=== PATIENT | male | born 1960 | race African-American/Black ===

== ENCOUNTER 2017-04-18 21:06 | Emergency (ER) | payer OTHER ==
[2017-04-18] MEDS ORDERED: ONDANSETRON HCL INJ/PF 4 MG/2 ML SDV IV ONE (22:34)
[2017-04-18] MEDS ORDERED: FAMOTIDINE INJ/PF 20 MG/2 ML SDV IV ONE (22:35)
--- NOTE | 2017-04-18 22:37 | ER Document Report ---
ED Medical Screen (RME) - General Chief Complaint: Chest Pain Stated Complaint: CHEST PAIN AND ABDOMINAL PAIN Time Seen by Provider: 04/18/17 22:27 Mode of Arrival: Ambulatory Information source: Patient TRAVEL OUTSIDE OF THE [place] IN LAST 30 DAYS: No - HPI Onset: Other - 3 days Notes: 04/18/17 22:36 Patient arrives with complaints of mid abdominal pain that radiates up into his chest. Pain comes and goes. He does complain of some chest pain as well. He denies any shortness of breath. Been having a lot of diarrhea, and states that anytime he eats or drinks it goes right through him. He denies any vomiting but has had nausea. He denies fevers. States that when the pain comes it is very severe, and then it seems to somewhat resolved. Patient is nontoxic appearing. Mild mid abdominal tenderness on exam, with no obvious palpable mass on limited exam from triage chair. Patient was evaluated in triage and was medically screened. Any pertinent orders based on the patient's complaints were ordered at this time. Patient will require further evaluation and will be taken to a room for further evaluation by another provider. This was explained to the patient and/or family at this time. - Related Data Allergies/Adverse Reactions: No Known Allergies Allergy (Verified 03/17/13 08:06) Past Medical History - Social History Frequency of alcohol use: Social Drug Abuse: None - Past Medical History Cardiac Medical History: Reports: Hx Hypertension - no meds x 2 years Denies: Hx Coronary Artery Disease Pulmonary Medical History: Reports: Hx COPD, Hx Pneumonia Denies: Hx Asthma, Hx Bronchitis Neurological Medical History: Denies: Hx Cerebrovascular Accident, Hx Seizures Renal/ Medical History: Denies: Hx Peritoneal Dialysis Musculoskeltal Medical History: - Immunizations Hx Diphtheria, Pertussis, Tetanus Vaccination: No Physical Exam - Vital signs Vitals: Temp Pulse Resp BP Pulse Ox 98.5 F 49 L 20 154/94 H 98 04/18/17 22:24 04/18/17 22:24 04/18/17 22:24 04/18/17 22:24 04/18/17 22:24 Course - Vital Signs Vital signs: Temp Pulse Resp BP Pulse Ox 98.5 F 49 L 20 154/94 H 98 04/18/17 22:24 04/18/17 22:24 04/18/17 22:24 04/18/17 22:24 04/18/17 22:24
--- NOTE | 2017-04-18 23:10 | RADIOLOGY REPORT (SQ) ---
EXAM DESCRIPTION: CHEST PA/LAT COMPLETED DATE/TIME: 04/18/2017 10:49 pm REASON FOR STUDY: cp COMPARISON: 03/17/2013 EXAM PARAMETERS: NUMBER OF VIEWS: two views TECHNIQUE: Digital Frontal and Lateral radiographic views of the chest acquired. RADIATION DOSE: NA LIMITATIONS: none FINDINGS: LUNGS AND PLEURA: No acute opacities, masses or pneumothorax. No pleural effusion. MEDIASTINUM AND HILAR STRUCTURES: Stable. HEART AND VASCULAR STRUCTURES: Heart normal size. No evidence for failure. BONES: No acute findings. HARDWARE: None in the chest. OTHER: No other significant finding. IMPRESSION: No acute findings. TECHNICAL DOCUMENTATION: JOB ID: [id number] [id number] 2010 [email or web address]- All Rights Reserved
[2017-04-18 23:40] LABS: APPEARANCE,URINE SLIGHTLY-CLOUDY; BILIRUBIN,URINE NEGATIVE (NEGATIVE); COLOR,URINE YELLOW; GLUCOSE, URINE NEGATIVE (NEGATIVE); KETONES,URINE TRACE mg/dL (NEGATIVE); LEUKOCYTE ESTERASE,URINE NEGATIVE (NEGATIVE); NITRITE,URINE NEGATIVE (NEGATIVE); PROTEIN,URINE 30 mg/dL (NEGATIVE); URINE SPECIFIC GRAVITY 1.033; UROBILINOGEN,URINE NEGATIVE mg/dL (<2.0)
[2017-04-18 23:41] LABS: ABSOLUTE EOSINOPHILS # (AUTO) 0.3 10^3/uL (0.0-0.6); ABSOLUTE LYMPHOCYTES (AUTO) 1.9 10^3/uL (0.5-4.7); ABSOLUTE MONOCYTES (AUTO) 0.5 10^3/uL (0.1-1.4); ABSOLUTE NEUT (AUTO) 3.8 10^3/uL (1.7-8.2); BASOPHILS % (AUTO) 0.6 % (0-2); EOSINOPHILS % (AUTO) 4.5 % (0-6); HEMOGLOBIN 13.7 g/dL (13.5-17.0); LYMPHOCYTES % (AUTO) 29.2 % (13-45); MEAN CORPUSCULAR HEMOGLOBIN 29.6 pg (27.0-33.4); MEAN CORPUSCULAR HGB CONC 33.4 g/dL (32.0-36.0); MEAN CORPUSCULAR VOLUME 89 fl (80-97); MONOCYTES % (AUTO) 8.2 % (3-13); PLATELET COUNT 227 10^3/uL (150-450); RED BLOOD COUNT 4.63 10^6/uL (4.35-5.55); RED CELL DISTRIBUTION WIDTH 12.8 % (11.5-14.0); SEGMENTED NEUTROPHILS % (AUTO) 57.5 % (42-78); TOTAL CELLS COUNTED % (AUTO) 100 %; WHITE BLOOD COUNT 6.6 10^3/uL (4.0-10.5)
[2017-04-19 00:18] LABS: ALANINE AMINOTRANSFERASE 32 U/L (21-72); ALBUMIN 4.8 g/dL (3.5-5.0); ALKALINE PHOSPHATASE 72 U/L (38-126); ANION GAP 9 (5-19); ASPARTATE AMINO TRANSFERASE 24 U/L (17-59); BILIRUBIN,DIRECT 0.3 mg/dL (0.0-0.4); BILIRUBIN,TOTAL 0.8 mg/dL (0.2-1.3); BLOOD UREA NITROGEN 12 mg/dL (7-20); CARBON DIOXIDE 27 mmol/L (22-30); CHLORIDE 105 mmol/L (98-107); CREATINE KINASE 178 U/L (55-170); GLUCOSE 88 mg/dL (75-110); LIPASE 172.4 U/L (23-300); POTASSIUM 4.7 mmol/L (3.6-5.0); SODIUM 141.4 mmol/L (137-145); TOTAL PROTEIN 7.8 g/dL (6.3-8.2)
[2017-04-19 00:28] LABS: CREATINE KINASE MB 0.63 ng/mL (<4.55); TROPONIN I < 0.012 ng/mL
[2017-04-19] MEDS ORDERED: NORMAL SALINE 1000 ML 1,000 ML IV ONE (01:25)
[2017-04-19] MEDS ORDERED: SUCRALFATE 1 GM TABLET PO ONE (01:33)
[2017-04-19] MEDS ORDERED: MAG HYDROX/AL HYDROX/SIMETH SUSP 30 ML UDCUP PO ONE (01:33)
--- NOTE | 2017-04-19 01:34 | ER Document Report ---
ED General - General Chief Complaint: Chest Pain Stated Complaint: CHEST PAIN AND ABDOMINAL PAIN Time Seen by Provider: 04/18/17 22:27 Mode of Arrival: Ambulatory Notes: Patient is a 56-year-old male comes emergency department for chief complaint of pain in his upper abdomen that occasionally radiates up into his chest. He states it feels like a "combination of indigestion, bloating, and sharp pain". He states symptoms have been going on 3 days intermittently. He states when he eats almost immediately afterward he has discomfort and then a bowel movement. He reports a normal stool within the past 24 hours. He denies fever chills, shortness of breath. He smokes, he drinks alcohol nightly, he is medicated for hypertension. No past medical history reported otherwise. TRAVEL OUTSIDE OF THE [place] IN LAST 30 DAYS: No - Related Data Allergies/Adverse Reactions: No Known Allergies Allergy (Verified 03/17/13 08:06) Past Medical History - General Information source: Patient - Social History Smoking Status: Current Every Day Smoker Frequency of alcohol use: Heavy Drug Abuse: None Lives with: Family Family History: Reviewed & Not Pertinent Patient has suicidal ideation: No Patient has homicidal ideation: No - Past Medical History Cardiac Medical History: Reports: Hx Hypertension - no meds x 2 years Denies: Hx Coronary Artery Disease Pulmonary Medical History: Reports: Hx COPD, Hx Pneumonia Denies: Hx Asthma, Hx Bronchitis Neurological Medical History: Denies: Hx Cerebrovascular Accident, Hx Seizures Renal/ Medical History: Denies: Hx Peritoneal Dialysis Musculoskeltal Medical History: Surgical Hx: Negative - Immunizations Hx Diphtheria, Pertussis, Tetanus Vaccination: No Review of Systems - Review of Systems Constitutional: No symptoms reported EENT: No symptoms reported Cardiovascular: See HPI Respiratory: See HPI Gastrointestinal: See HPI Genitourinary: No symptoms reported Male Genitourinary: No symptoms reported Musculoskeletal: No symptoms reported Skin: No symptoms reported Hematologic/Lymphatic: No symptoms reported Neurological/Psychological: No symptoms reported Physical Exam - Vital signs Vitals: Temp Pulse Resp BP Pulse Ox 98.5 F 49 L 20 154/94 H 98 04/18/17 22:24 04/18/17 22:24 04/18/17 22:24 04/18/17 22:24 04/18/17 22:24 Interpretation: Normal - General General appearance: Appears well, Alert In distress: None - HEENT Head: Normocephalic, Atraumatic Eyes: Normal Conjunctiva: Normal Extraocular movements intact: Yes Eyelashes: Normal Pupils: PERRL Sinus: Normal Nasal: Normal Mouth/Lips: Normal Mucous membranes: Normal Pharynx: Normal Neck: Normal - Respiratory Respiratory status: No respiratory distress Chest status: Nontender Breath sounds: Normal. No: Decreased air movement, Wheezing Chest palpation: Normal - Cardiovascular Rhythm: Regular. No: Tachycardia Heart sounds: Normal auscultation, S1 appreciated, S2 appreciated Murmur: No - Abdominal Inspection: Normal Distension: No distension Bowel sounds: Normal Tenderness: Tender - Mild tenderness in the general upper abdomen, nonspecific, no guarding Organomegaly: No organomegaly - Back Back: Normal, Nontender. No: Tender - Extremities General upper extremity: Normal inspection, Nontender, Normal ROM, Normal strength General lower extremity: Normal inspection, Nontender, Normal ROM, Normal strength - Neurological Neuro grossly intact: Yes Cognition: Normal Orientation: AAOx4 [place] Coma Scale Eye Opening: Spontaneous [place] Coma Scale Verbal: Oriented [place] Coma Scale Motor: Obeys Commands [place] Coma Scale Total: 15 Speech: Normal Motor strength normal: LUE, RUE, LLE, RLE Sensory: Normal - Psychological Associated symptoms: Normal affect, Normal mood - Skin Skin Temperature: Warm Skin Moisture: Dry Skin Color: Normal Course - Re-evaluation Re-evalutation: Patient has mild generalized upper abdominal tenderness on examination. He smokes, drinks, and states he has been taking ibuprofen a lot recently. His described symptoms are consistent with gastritis/esophagitis. EKG shows sinus bradycardia but patient is thin, fit, ex-[employer]ine. On recheck he no longer had bradycardia. He denied any lightheadedness. Troponin is negative. Symptoms have been ongoing and worsening. Lipase is negative, CBC, chemistry unremarkable. CAT scan was actually already ordered and performed twice on the patient. Shows no acute abnormality. Patient's symptoms significantly improved after Carafate, Pepcid, Zofran. Consistent with gastritis, low suspicion of ACS. Discussed with patient in detail. He states that he plans on performing significant lifestyle changes including stopping drinking and smoking along with taking his medication and seen his provider for follow-up. states that when he gets his mind made up he actually follows through. Discussed return precautions in detail with patient and , they state understanding and agreement. Patient hypertensive, he states he will follow-up with this as well, states he used to be on medications and he will most likely be getting back on them. He does not have a headache, and he does not have any current pain. Stable at time of discharge. - Vital Signs Vital signs: Temp Pulse Resp BP Pulse Ox 97.3 F 55 L 14 178/92 H 99 04/19/17 02:41 04/19/17 02:41 04/19/17 02:41 04/19/17 02:41 04/19/17 02:41 - Laboratory Result Diagrams: 04/18/17 22:55 04/18/17 22:55 Laboratory results interpreted by me: 04/18/17 04/18/17 22:50 22:55 Creatine Kinase 178 H Urine Protein 30 H Urine Ketones TRACE H Urine Blood SMALL H Discharge - Discharge Clinical Impression: Epigastric pain Condition: Stable Disposition: HOME, SELF-CARE Additional Instructions: Your examination, symptoms, and workup are most consistent with esophagitis/ gastritis. No concerning abnormalities were seen on your workup tonight. Please take the Carafate and omeprazole as prescribed, avoid alcohol, smoking, spicy food, large amounts of caffeine, NSAIDs (ibuprofen/Advil, naproxen/Aleve, aspirin, BC powder). You can take things like Pepcid, Tums, Rolaids additionally if needed for pain. Follow-up with your primary care provider for additional evaluation. Return if you worsen in anyway including vomiting, vomiting blood, severe worsening pain, black stools, or any other concerning symptoms. Prescriptions: Omeprazole 40 mg PO DAILY #30 capsule.dr Varelaralfahector [Carafate 1 gm Tablet] 1 gm PO QID #20 tablet Forms: Return to Work, Elevated Blood Pressure Referrals: MARTHA DASH MD [Primary Care Provider] - Follow up in 1 week
--- NOTE | 2017-04-19 01:40 | RADIOLOGY REPORT (SQ) ---
EXAM DESCRIPTION: CT ABDOMEN AND PELVIS WITH CONTRAST CLINICAL HISTORY: Diffuse abdominal pain. COMPARISON: 05/24/2015 TECHNIQUE: CT of the abdomen and pelvis are performed during IV bolus administration of 100.2 mL of Isovue-370. DLP: 437.84 mGycm FINDINGS: Abdomen: The liver has normal size and density. No intrahepatic mass or biliary dilatation. No calcified gallstones. The spleen, pancreas, and adrenal glands are unremarkable. The kidneys have normal size and contour without evidence of solid mass or hydronephrosis. Bosniak class I right renal cyst. The aorta and IVC have normal caliber and position. The portal vein patent. The proximal visceral and renal arteries are patent. No free intraperitoneal air. The stomach and duodenum have normal course. Pelvis: Prostate is not enlarged. Urinary bladder is unremarkable. No free pelvic fluid or lymphadenopathy. No dilated loops of large or small bowel. Normal appendix. The visualized lung bases are clear. No destructive bone lesions identified. IMPRESSION: 1. No acute inflammatory or obstructive abnormality identified This exam was performed according to our departmental dose-optimization program, which includes automated exposure control, adjustment of the mA and/or kV according to patient size and/or use of iterative reconstruction technique.
[2017-04-19] MEDS ORDERED: ONDANSETRON 4 MG TAB.RAPDIS PO ONE (01:53)
[2017-04-19] MEDS ORDERED: FAMOTIDINE 20 MG TABLET PO ONE (01:53)
[2017-04-19 02:46] VITALS: BP 178/92
--- NOTE | 2017-04-19 12:02 | EKG REPORT ---
SEVERITY:- ABNORMAL ECG - SINUS OR ECTOPIC ATRIAL BRADYCARDIA NONSPECIFIC INTRAVENTRICULAR CONDUCTION DELAY LEFT VENTRICULAR HYPERTROPHY : Confirmed by: Radha Armstrong 19-Apr-2017 12:01:26
== END 2017-04-19 02:45 | disposition home or self-care (01) ==
LOC: ER 21:06
DX: R10.13 Epigastric pain (principal); R07.9 Chest pain, unspecified; J44.9 Chronic obstructive pulmonary disease, unspecified; F17.200 Nicotine dependence, unspecified, uncomplicated; I10 Essential (primary) hypertension; R00.1 Bradycardia, unspecified
CPT/HCPCS: 93005; 99285; 96360; 36415; 82553; 82550; 83690; 85025; 80053; 81001; 84484; 71046; 74177; 93010; S0119; J7030

== ENCOUNTER 2018-07-26 14:25 | Observation (INO) | payer OTHER ==
[2018-07-26 16:21] LABS: ABSOLUTE EOSINOPHILS # (AUTO) 0.3 10^3/uL (0.0-0.6); ABSOLUTE LYMPHOCYTES (AUTO) 1.7 10^3/uL (0.5-4.7); ABSOLUTE MONOCYTES (AUTO) 0.4 10^3/uL (0.1-1.4); ABSOLUTE NEUT (AUTO) 3.1 10^3/uL (1.7-8.2); BASOPHILS % (AUTO) 0.5 % (0-2); EOSINOPHILS % (AUTO) 4.8 % (0-6); HEMATOCRIT 40.3 % (37.9-51.0); HEMOGLOBIN 13.1 g/dL (13.5-17.0); LYMPHOCYTES % (AUTO) 30.7 % (13-45); MEAN CORPUSCULAR HEMOGLOBIN 29.5 pg (27.0-33.4); MEAN CORPUSCULAR HGB CONC 32.6 g/dL (32.0-36.0); MEAN CORPUSCULAR VOLUME 90 fl (80-97); MONOCYTES % (AUTO) 7.2 % (3-13); PLATELET COUNT 208 10^3/uL (150-450); RED BLOOD COUNT 4.46 10^6/uL (4.35-5.55); SEGMENTED NEUTROPHILS % (AUTO) 56.8 % (42-78); TOTAL CELLS COUNTED % (AUTO) 100 %; WHITE BLOOD COUNT 5.4 10^3/uL (4.0-10.5)
[2018-07-26] MEDS ORDERED: PANTOPRAZOLE SODIUM 40 MG TABLET.DR PO SCH (16:30)
[2018-07-26 16:38] LABS: ALANINE AMINOTRANSFERASE 26 U/L (21-72); ALBUMIN 4.6 g/dL (3.5-5.0); ALKALINE PHOSPHATASE 65 U/L (38-126); ANION GAP 8 (5-19); ASPARTATE AMINO TRANSFERASE 24 U/L (17-59); BILIRUBIN,DIRECT 0.2 mg/dL (0.0-0.4); BILIRUBIN,TOTAL 0.8 mg/dL (0.2-1.3); BLOOD UREA NITROGEN 19 mg/dL (7-20); CALCIUM 9.3 mg/dL (8.4-10.2); CARBON DIOXIDE 30 mmol/L (22-30); CHLORIDE 100 mmol/L (98-107); CREATINE KINASE 256 U/L (55-170); GLUCOSE 88 mg/dL (75-110); POTASSIUM 4.2 mmol/L (3.6-5.0); SODIUM 137.8 mmol/L (137-145); TOTAL PROTEIN 7.6 g/dL (6.3-8.2)
[2018-07-26 16:50] LABS: CREATINE KINASE MB 1.24 ng/mL (<4.55); NT PRO BNP 29 pg/mL (5-900)
[2018-07-26 16:52] LABS: TROPONIN I < 0.012 ng/mL
[2018-07-26] MEDS: ASPIRIN 81 MG TABLET, ENT COATED PO SCH (16:52)
--- NOTE | 2018-07-26 18:49 | EKG REPORT ---
SEVERITY:- ABNORMAL ECG - SINUS RHYTHM MULTIPLE APCS AND VENTRICULAR PREMATURE COMPLEXES PROBABLE LEFT ATRIAL ABNORMALITY LEFT VENTRICULAR HYPERTROPHY ANTERIOR Q WAVES, POSSIBLY DUE TO LVH BORDERLINE ST ELEVATION, SEC TO EARLY REPOL CHANGES, R/O HYPERKALEMIA : Confirmed by: Radha Armstrong 26-Jul-2018 18:48:58
--- NOTE | 2018-07-26 18:50 | EKG REPORT ---
SEVERITY:- ABNORMAL ECG - SINUS RHYTHM MULTIPLE VENTRICULAR PREMATURE COMPLEXES LEFT VENTRICULAR HYPERTROPHY ST ELEVATION SUGGESTS PERICARDITIS VS EARLY REPOL CHANGES : Confirmed by: Radha Armstrong 26-Jul-2018 18:49:28
--- NOTE | 2018-07-26 20:21 | PDOC H&P ---
History of Present Illness Admission Date/PCP: 07/26/18 14:40 MARTHA DASH MD History of Present Illness: TIM LEYVA is a 57 year old male,he came to the office today for evaluation of chest pain,the chest pain is non-specific ,the 12 Lead EKG demonstrated sinus Rhythm,ST elevation,concave elevation of ST-segment in precordial leads this suggest pericarditis rather than ischemia .CTA chest done was negative for pulmonary embolism .He also complains of lower extremity pain /leg pain ,can not completely rule out peripheral vascular disease Past Medical History Cardiac Medical History: Reports: Hypertension - no meds x 2 years Pulmonary Medical History: Reports: Chronic Obstructive Pulmonary Disease ([place] PD), Pneumonia Musculoskeltal Medical History: Social History Smoking Status: Current Every Day Smoker Cigarettes Packs Per Day: 0.5 Number of Years Smokin Last Time Smoked: 07/26/18 Hx Recreational Drug Use: No Family History Family History: Reviewed & Not Pertinent Parental Family History Reviewed: Yes Children Family History Reviewed: Yes Sibling(s) Family History Reviewed.: Yes Medication/Allergy Home Medications: Losartan/Hydrochlorothiazide [Losartan-Hctz 50-12.5 mg Tab] 1 tab PO DAILY 07/26/18 Sildenafil Citrate [Viagra] 100 mg PO PRN PRN 07/26/18 Esomeprazole Mag Trihydrate [Nexium] 40 mg PO DAILY #90 capsule. 07/30/18 Allergies/Adverse Reactions: No Known Allergies Allergy (Verified 03/17/13 08:06) Review of Systems Constitutional: ABSENT: chills, fever(s), headache(s), weight gain, weight loss Eyes: ABSENT: visual disturbances Ears: ABSENT: hearing changes Cardiovascular: PRESENT: chest pain Respiratory: ABSENT: cough, hemoptysis Gastrointestinal: ABSENT: abdominal pain, constipation, diarrhea, hematemesis, hematochezia, nausea, vomiting Genitourinary: ABSENT: dysuria, hematuria Musculoskeletal: ABSENT: joint swelling Integumentary: ABSENT: rash, wounds Neurological: ABSENT: abnormal gait, abnormal speech, confusion, dizziness, focal weakness, syncope Psychiatric: ABSENT: anxiety, depression, homidical ideation, suicidal ideation Endocrine: ABSENT: cold intolerance, heat intolerance, menstrual abnormalities, polydipsia, polyuria Hematologic/Lymphatic: ABSENT: easy bleeding, easy bruising, lymphadenopathy Physical Exam Vital Signs: Temp Pulse Resp BP Pulse Ox 97.6 F 54 L 16 141/90 H 99 07/26/18 15:36 07/26/18 15:36 07/26/18 15:36 07/26/18 15:36 07/26/18 15:36 Intake & Output 07/25/18 07/26/18 07/27/18 06:59 06:59 06:59 Weight 50.7 kg General appearance: PRESENT: no acute distress, well-developed, well-nourished Head exam: PRESENT: atraumatic, normocephalic Eye exam: PRESENT: conjunctiva pink, EOMI, PERRLA Ear exam: PRESENT: normal external ear exam Mouth exam: PRESENT: moist, tongue midline Neck exam: PRESENT: full ROM Respiratory exam: PRESENT: clear to auscultation mark Cardiovascular exam: PRESENT: RRR, +S1, +S2 Vascular exam: PRESENT: normal capillary refill GI/Abdominal exam: PRESENT: normal bowel sounds, soft Rectal exam: PRESENT: deferred Neurological exam: PRESENT: alert, awake, oriented to person, oriented to place, oriented to time, oriented to situation, CN II-XII grossly intact Psychiatric exam: PRESENT: appropriate affect, normal mood Skin exam: PRESENT: dry, intact, warm Results Laboratory Results: 07/26/18 16:10 07/26/18 16:10 07/26/18 07/26/18 16:10 16:10 WBC 5.4 RBC 4.46 Hgb 13.1 L Hct 40.3 MCV 90 MCH 29.5 MCHC 32.6 RDW 13.0 Plt Count 208 Seg Neutrophils % 56.8 Lymphocytes % 30.7 Monocytes % 7.2 Eosinophils % 4.8 Basophils % 0.5 Absolute Neutrophils 3.1 Absolute Lymphocytes 1.7 Absolute Monocytes 0.4 Absolute Eosinophils 0.3 Absolute Basophils 0.0 Sodium 137.8 Potassium 4.2 Chloride 100 Carbon Dioxide 30 Anion Gap 8 BUN 19 Creatinine 1.08 Est GFR ( Amer) > 60 Est GFR (Non-Af Amer) > 60 Glucose 88 Calcium 9.3 Total Bilirubin 0.8 AST 24 ALT 26 Alkaline Phosphatase 65 Total Protein 7.6 Albumin 4.6 07/26/18 07/26/18 16:10 16:10 Creatine Kinase 256 H CK-MB (CK-2) 1.24 Troponin I < 0.012 NT-Pro-B Natriuret Pep 29 Assessment & Plan - Diagnosis (1) Chest pain Qualifiers: Chest pain type: unspecified Qualified Code(s): R07.9 - Chest pain, unspecified Is this a current diagnosis for this admission?: Yes
--- NOTE | 2018-07-26 21:25 | RADIOLOGY REPORT (SQ) ---
EXAM DESCRIPTION: CT CHEST ANGIOGRAPHY WITHOUT THEN WITH IV CONTRAST COMPLETED DATE/TME: 07/26/2018 00:00 CLINICAL HISTORY: 57 years Male chest pain COMPARISON: None. TECHNIQUE: Contiguous axial images were obtained through the chest during the infusion of IV contrast. Reformatted images obtained. MIP reformatted images obtained. This exam was performed according to our department optimization program which includes automated exposure control, adjustment of the mA and/or kv according to patient size and/or use of iterative reconstruction technique. FINDINGS: No evidence of aortic dissection or rupture. No significant thoracic adenopathy. No pericardial or pleural effusion. No evidence of pulmonary embolus. No acute consolidation. IMPRESSION:No evidence of pulmonary embolus
[2018-07-26 23:14] LABS: APPEARANCE,URINE CLEAR; BILIRUBIN,URINE NEGATIVE (NEGATIVE); COLOR,URINE YELLOW; GLUCOSE, URINE NEGATIVE (NEGATIVE); KETONES,URINE NEGATIVE (NEGATIVE); LEUKOCYTE ESTERASE,URINE NEGATIVE (NEGATIVE); NITRITE,URINE NEGATIVE (NEGATIVE); PROTEIN,URINE NEGATIVE (NEGATIVE); UROBILINOGEN,URINE NEGATIVE mg/dL (<2.0)
[2018-07-26] MEDS: NORMAL SALINE 1000 ML 1,000 ML IV PRN (23:16)
[2018-07-26 23:24] LABS: URINE SPECIFIC GRAVITY > 1.060
--- NOTE | 2018-07-26 23:59 | RADIOLOGY REPORT (SQ) ---
CLINICAL HISTORY: CP, ABNORMAL EKG, LEG PAIN COMPARISON: None. TECHNIQUE: XR CHEST 1 VIEW 07/26/2018 12:00 AM CDT FINDINGS: Cardiac silhouette is normal in size. Lungs are clear without consolidation, atelectasis, mass or edema. There is no pleural effusion. There is no pneumothorax. There are no acute osseous findings. IMPRESSION: Clear lungs.
[2018-07-27 01:17] LABS: CREATINE KINASE MB 0.75 ng/mL (<4.55)
[2018-07-27 01:28] LABS: TROPONIN I < 0.012 ng/mL
[2018-07-27] MEDS: ACETAMINOPHEN 325 MG TABLET PO PRN ×2 (04:24→12:10)
[2018-07-27] MEDS ORDERED: MAG HYDROX/AL HYDROX/SIMETH SUSP 30 ML UDCUP PO ONE (04:25)
[2018-07-27] MEDS: PANTOPRAZOLE SODIUM 40 MG TABLET.DR PO SCH ×2 (06:09→17:37)
[2018-07-27] MEDS: ASPIRIN 81 MG TABLET, ENT COATED PO SCH (09:15)
[2018-07-27] MEDS: NORMAL SALINE 1000 ML 1,000 ML IV PRN ×2 (09:15→18:34)
[2018-07-27 09:32] LABS: CREATINE KINASE MB 0.74 ng/mL (<4.55)
[2018-07-27 09:33] LABS: TROPONIN I < 0.012 ng/mL
[2018-07-27] MEDS ORDERED: MAG HYDROX/AL HYDROX/SIMETH SUSP 30 ML UDCUP PO PRN (10:29)
--- NOTE | 2018-07-27 10:32 | PDOC PROGRESS REPORT ---
Subjective Progress Note for:: 07/27/18 Subjective:: Patient was admitted because of the chest pain abdominal pain Patient's cardiac enzyme is all negative Patient CTA was negative for PE Patient is more complaining of looks like a ulcers in the stomach feeling heartburns and the use the Maalox which helps Reason For Visit: CHEST PAIN,ABNORMAL EKG,LEG PAIN,TOBACCO ABUSE Physical Exam Vital Signs: Temp Pulse Resp BP Pulse Ox 98.0 F 54 L 16 169/98 H 99 07/27/18 03:38 07/27/18 07:00 07/27/18 03:38 07/27/18 03:38 07/27/18 03:38 Intake & Output 07/26/18 07/27/18 07/28/18 06:59 06:59 06:59 Intake Total 998 Output Total 450 Balance -450 998 Weight 55.2 kg General appearance: PRESENT: no acute distress, well-developed, well-nourished Head exam: PRESENT: atraumatic, normocephalic Eye exam: PRESENT: conjunctiva pink, EOMI, PERRLA. ABSENT: scleral icterus Ear exam: PRESENT: normal external ear exam Mouth exam: PRESENT: moist, tongue midline Neck exam: PRESENT: full ROM. ABSENT: carotid bruit, JVD, lymphadenopathy, thyromegaly Respiratory exam: PRESENT: clear to auscultation mark Cardiovascular exam: PRESENT: RRR. ABSENT: diastolic murmur, rubs, systolic murmur Vascular exam: PRESENT: normal capillary refill GI/Abdominal exam: PRESENT: normal bowel sounds, soft. ABSENT: distended, guarding, mass, organolmegaly, rebound, tenderness Rectal exam: PRESENT: deferred Neurological exam: PRESENT: alert, awake, oriented to person, oriented to place, oriented to time, oriented to situation, CN II-XII grossly intact. ABSENT: motor sensory deficit Psychiatric exam: PRESENT: appropriate affect, normal mood. ABSENT: homicidal ideation, suicidal ideation Skin exam: PRESENT: dry, intact, warm. ABSENT: cyanosis, rash Results Laboratory Results: 07/26/18 16:10 07/26/18 16:10 07/26/18 07/26/18 07/26/18 16:10 16:10 22:58 WBC 5.4 RBC 4.46 Hgb 13.1 L Hct 40.3 MCV 90 MCH 29.5 MCHC 32.6 RDW 13.0 Plt Count 208 Seg Neutrophils % 56.8 Lymphocytes % 30.7 Monocytes % 7.2 Eosinophils % 4.8 Basophils % 0.5 Absolute Neutrophils 3.1 Absolute Lymphocytes 1.7 Absolute Monocytes 0.4 Absolute Eosinophils 0.3 Absolute Basophils 0.0 Sodium 137.8 Potassium 4.2 Chloride 100 Carbon Dioxide 30 Anion Gap 8 BUN 19 Creatinine 1.08 Est GFR ( Amer) > 60 Est GFR (Non-Af Amer) > 60 Glucose 88 Calcium 9.3 Total Bilirubin 0.8 AST 24 ALT 26 Alkaline Phosphatase 65 Total Protein 7.6 Albumin 4.6 Urine Color YELLOW Urine Appearance CLEAR Urine pH 8.0 Ur Specific [place] > 1.060 Urine Protein NEGATIVE Urine Glucose (UA) NEGATIVE Urine Ketones NEGATIVE Urine Blood NEGATIVE Urine Nitrite NEGATIVE Ur Leukocyte Esterase NEGATIVE Urine WBC (Auto) 0 Urine RBC (Auto) 1 07/26/18 07/26/18 07/27/18 16:10 16:10 00:20 Creatine Kinase 256 H 194 H CK-MB (CK-2) 1.24 Troponin I < 0.012 NT-Pro-B Natriuret Pep 29 07/27/18 07/27/18 07/27/18 00:20 08:20 08:20 Creatine Kinase 191 H CK-MB (CK-2) 0.75 0.74 Troponin I < 0.012 < 0.012 NT-Pro-B Natriuret Pep Impressions: Chest X-Ray 07/26/18 00:00 IMPRESSION: Clear lungs. Chest/Abdomen CTA 07/26/18 00:00 IMPRESSION:No evidence of pulmonary embolus Assessment & Plan - Diagnosis (1) Gastroesophageal reflux disease Qualifiers: Esophagitis presence: without esophagitis Qualified Code(s): K21.9 - Gastro-esophageal reflux disease without esophagitis Is this a current diagnosis for this admission?: Yes Plan: Continues to Protonix (2) Abdominal pain Qualifiers: Abdominal location: epigastric Qualified Code(s): R10.13 - Epigastric pain Is this a current diagnosis for this admission?: Yes Plan: We will continue stop Protonix get the CT scan of the abdomen and pelvis (3) Chest pain Qualifiers: Chest pain type: unspecified Qualified Code(s): R07.9 - Chest pain, unspecified Is this a current diagnosis for this admission?: Yes Plan: Cardiac enzyme and EKG all negative - Time Time Spent with patient: 15-24 minutes Medications reviewed and adjusted accordingly: Yes Anticipated discharge: Home Within: Other - Plan Summary Plan Summary: We will get the CT scan of the abdomen and pelvis
--- NOTE | 2018-07-27 14:53 | RADIOLOGY REPORT (SQ) ---
EXAM DESCRIPTION: CT ABD/PELVIS NO ORAL OR IV COMPLETED DATE/TIME: 07/27/2018 10:40 am REASON FOR STUDY: Abd pain COMPARISON: 05/24/2015 TECHNIQUE: CT scan of the abdomen and pelvis performed without intravenous or oral contrast. Images reviewed with lung, soft tissue, and bone windows. Reconstructed coronal and sagittal MPR images revi ewed. All images stored on PACS. All CT scanners at this facility use dose modulation, iterative reconstruction, and/or weight based d osing when appropriate to reduce radiation dose to as low as reasonably achievable (ALARA). [facility]: Dose Right [facility]: CareDose [facility]: Dose Right [facility]: Teradose 4D [facility]: [employer] RADIATION DOSE: CT Rad equipment meets quality standard of care and radiation dose reduction techniq ues were employed. CTDIvol: 4.8 mGy. DLP: 228 mGy-cm.mGy. LIMITATIONS: None. FINDINGS: LOWER CHEST: No significant findings. No nodules or infiltrates. NON-CONTRASTED LIVER, SPLEEN, ADRENALS: Evaluation limited by lack of IV contrast. No identified sign ificant masses. PANCREAS: No masses. No peripancreatic inflammatory changes. GALLBLADDER: No calcified stones. No inflammatory changes to suggest cholecystitis. RIGHT KIDNEY AND URETER: No cysts identified. No solid masses. 5 mm lower pole calcified stone. No h ydronephrosis or hydroureter. LEFT KIDNEY AND URETER: No cysts identified. No solid masses. No calcified stones. No hydronephrosis or hydroureter. AORTA AND RETROPERITONEUM: No aneurysm. No retroperitoneal masses or adenopathy. BOWEL AND PERITONEAL CAVITY: There is a approximately 7 cm collection of presumed fluid with increase d density in the mid pelvis -mesentery, 45 Hounsfield units, uncertain etiology. No bowel dilatation . APPENDIX: Normal. PELVIS, BLADDER, AND ABDOMINAL WALL:There is a approximately 7 cm collection of presumed fluid with i ncreased density in the mid pelvis -mesentery, 45 Hounsfield units, uncertain etiology. . Unremarkabl e bladder. BONES: No acute findings. OTHER: No other significant finding. IMPRESSION: There is a approximately 7 cm collection of presumed fluid with increased density in the mid pelvis -mesentery, 45 Hounsfield units, uncertain etiology. I would recommend additional evalu ation with contrast to further characterize. TECHNICAL DOCUMENTATION: JOB ID: [id number] [place]-72 Quality ID # [id number]: Final reports with documentation of one or more dose reduction techniques (e.g., Au tomated exposure control, adjustment of the mA and/or kV according to patient size, use of iterative reconstruction technique) 2010 [employer]- All Rights Reserved Reading location - IP/workstation name: [email or web address]
--- NOTE | 2018-07-27 17:13 | PDOC CONSULTATION ---
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 Patient presented [address] Dash's office complaining of chest pain. He was seen by Dr. Dash and admitted to the hospital for work-up for cardiac ischemia. And for possible pulmonary embolism. He underwent enzyme studies CT angiogram twelve-lead EKG which been negative for cardiac etiology. Then seen today by Dr. Parrish on rounds and questioning the patient really is complaining of epigastric pain and therefore Dr. Parrish ordered a CT scan of his abdomen. CT scan showed some free fluid in his pelvis and he was asked to consult because of the epigastric pain and the free fluid in the pelvis. He gives a long history of ulcer disease that he says he probably aggravates from smoking and drinking. Was seen few 6 months ago here in this hospital for left upper quadrant pain and he was told he had an ulcer and he was given some time pump inhibitors which she took for only 3 days. He denies ever having an upper endoscopy but does admit to having a colonoscopy about 5 years ago. States he has a good appetite and has not lost any significant weight not had complain of any nausea or vomiting States that food sometimes makes the epigastric pain better as he feels it may c oat the inside of his stomach. Does take Maalox as also he states makes his stomach feel better. Past Medical History Cardiac Medical History: Reports: Hypertension - no meds x 2 years Pulmonary Medical History: Reports: Chronic Obstructive Pulmonary Disease (COPD), Pneumonia Musculoskeltal Medical History: Hematology: Denies: Anemia Past Surgical History Past Surgical History: Reports: None Social History Smoking Status: Current Every Day Smoker Cigarettes Packs Per Day: 0.5 Number of Years Smokin Last Time Smoked: 07/26/18 Frequency of Alcohol Use: Heavy Hx Recreational Drug Use: No Family History Family History: Reviewed & Not Pertinent Parental Family History Reviewed: No Children Family History Reviewed: NA Sibling(s) Family History Reviewed.: NA Medication/Allergy Home Medications: Losartan/Hydrochlorothiazide [Losartan-Hctz 50-12.5 mg Tab] 1 tab PO DAILY 07/26/18 Sildenafil Citrate [Viagra] 100 mg PO PRN PRN 07/26/18 Allergies/Adverse Reactions: No Known Allergies Allergy (Verified 03/17/13 08:06) Physical Exam Vital Signs: Temp Pulse Resp BP Pulse Ox 98.0 F 60 16 114/76 98 07/27/18 16:15 07/27/18 16:15 07/27/18 16:15 07/27/18 16:15 07/27/18 16:15 Intake & Output 07/26/18 07/27/18 07/28/18 06:59 06:59 06:59 Intake Total 998 Output Total 450 Balance -450 998 Weight 55.2 kg General appearance: PRESENT: no acute distress, cooperative, mild distress Head exam: PRESENT: normocephalic Eye exam: PRESENT: EOMI Ear exam: PRESENT: normal external ear exam Mouth exam: PRESENT: moist Teeth exam: PRESENT: poor dentation Neck exam: PRESENT: full ROM Respiratory exam: PRESENT: clear to auscultation mark Cardiovascular exam: PRESENT: RRR Pulses: PRESENT: normal carotid pulses, normal radial pulses, normal femoral pulses, +2 pedal pulses bilateral GI/Abdominal exam: PRESENT: soft - Some minimal tenderness epigastrium to deep palpation there is no lower abdominal pain Rectal exam: PRESENT: deferred Extremities exam: PRESENT: full ROM Musculoskeletal exam: PRESENT: full ROM Neurological exam: PRESENT: alert, awake, oriented to person, oriented to place, oriented to time, oriented to situation Psychiatric exam: PRESENT: appropriate affect Skin exam: PRESENT: dry Results Laboratory Results: 07/26/18 16:10 07/26/18 16:10 07/26/18 22:58 Urine Color YELLOW Urine Appearance CLEAR Urine pH 8.0 Ur Specific [place] > 1.060 Urine Protein NEGATIVE Urine Glucose (UA) NEGATIVE Urine Ketones NEGATIVE Urine Blood NEGATIVE Urine Nitrite NEGATIVE Ur Leukocyte Esterase NEGATIVE Urine WBC (Auto) 0 Urine RBC (Auto) 1 07/26/18 07/26/18 07/27/18 16:10 16:10 00:20 Creatine Kinase 256 H 194 H CK-MB (CK-2) 1.24 Troponin I < 0.012 NT-Pro-B Natriuret Pep 29 07/27/18 07/27/18 07/27/18 00:20 08:20 08:20 Creatine Kinase 191 H CK-MB (CK-2) 0.75 0.74 Troponin I < 0.012 < 0.012 NT-Pro-B Natriuret Pep Impressions: Chest X-Ray 07/26/18 00:00 IMPRESSION: Clear lungs. Chest/Abdomen CTA 07/26/18 00:00 IMPRESSION:No evidence of pulmonary embolus Abdomen/Pelvis CT 07/27/18 00:00 IMPRESSION: There is a approximately 7 cm collection of presumed fluid with increased density in the mid pelvis -mesentery, 45 Hounsfield units, uncertain etiology. I would recommend additional evaluation with contrast to further characterize. Assessment & Plan - Plan Summary Plan Summary: Everardo this is a 57-year-old male reported previous history of ulcer disease with some epigastric pain and possibly some chest pain that has been worked up for possible cardiac etiology during his hospitalization and has been ruled out. Has persistent epigastric pain CT scan shows some free fluid in his pelvis. Impression rule out ulcer disease Plan patient will be made n.p.o. tomorrow and he will undergo bowel prep and then we will plan on upper and lower endoscopy. There is a fluid his pelvis is concerned that blood count is normal he is nontender to follow that for for now and then repeat his CAT scan in 1 to 2 weeks.
--- NOTE | 2018-07-27 23:00 | EKG REPORT ---
SEVERITY:- ABNORMAL ECG - SINUS RHYTHM CONSIDER LEFT VENTRICULAR HYPERTROPHY BORDERLINE ST ELEVATION, ANTEROLATERAL LEADS : Confirmed by: Radha Armstrong 27-Jul-2018 22:59:45
[2018-07-28] MEDS: NORMAL SALINE 1000 ML 1,000 ML IV PRN ×2 (04:53→15:07)
[2018-07-28] MEDS: PANTOPRAZOLE SODIUM 40 MG TABLET.DR PO SCH ×2 (06:13→17:13)
[2018-07-28 06:36] LABS: HEMATOCRIT 37.6 % (37.9-51.0); HEMOGLOBIN 12.4 g/dL (13.5-17.0); MEAN CORPUSCULAR HEMOGLOBIN 29.8 pg (27.0-33.4); MEAN CORPUSCULAR HGB CONC 32.9 g/dL (32.0-36.0); MEAN CORPUSCULAR VOLUME 91 fl (80-97); PLATELET COUNT 160 10^3/uL (150-450); RED BLOOD COUNT 4.16 10^6/uL (4.35-5.55); RED CELL DISTRIBUTION WIDTH 13.1 % (11.5-14.0); WHITE BLOOD COUNT 3.7 10^3/uL (4.0-10.5)
[2018-07-28 06:59] LABS: ANION GAP 6 (5-19); BLOOD UREA NITROGEN 8 mg/dL (7-20); CALCIUM 8.4 mg/dL (8.4-10.2); CARBON DIOXIDE 25 mmol/L (22-30); CHLORIDE 110 mmol/L (98-107); GLUCOSE 84 mg/dL (75-110); POTASSIUM 4.3 mmol/L (3.6-5.0); SODIUM 141.4 mmol/L (137-145)
[2018-07-28] MEDS ORDERED: PEG 3350/NA SULF,BICARB,CL/KCL 4000 ML PO PRN (07:30)
[2018-07-28] MEDS: ASPIRIN 81 MG TABLET, ENT COATED PO SCH (09:51)
--- NOTE | 2018-07-28 10:19 | PDOC PROGRESS REPORT ---
Subjective Progress Note for:: 07/28/18 Subjective:: Patient's currently doing well CT scan of the abdomen pelvis suggest some 7 cm fluid in the mid pelvic area with surgery was consulted and suggest patients probably need a endoscopy and colonoscopy Patient is denied any chest pain to than any shortness of the breath Reason For Visit: CHEST PAIN,ABNORMAL EKG,LEG PAIN,TOBACCO ABUSE Physical Exam Vital Signs: Temp Pulse Resp BP Pulse Ox 97.8 F 53 L 16 126/72 H 98 07/28/18 08:24 07/28/18 08:24 07/28/18 08:24 07/28/18 08:24 07/28/18 08:24 Intake & Output 07/27/18 07/28/18 07/29/18 06:59 06:59 06:59 Intake Total 3805 Output Total 450 1400 Balance -450 2405 Weight 55.2 kg 56.9 kg General appearance: PRESENT: no acute distress, well-developed, well-nourished Head exam: PRESENT: atraumatic, normocephalic Eye exam: PRESENT: conjunctiva pink, EOMI, PERRLA. ABSENT: scleral icterus Ear exam: PRESENT: normal external ear exam Mouth exam: PRESENT: moist, tongue midline Neck exam: PRESENT: full ROM. ABSENT: carotid bruit, JVD, lymphadenopathy, thyromegaly Respiratory exam: PRESENT: clear to auscultation mark Cardiovascular exam: PRESENT: RRR. ABSENT: diastolic murmur, rubs, systolic murmur Vascular exam: PRESENT: normal capillary refill GI/Abdominal exam: PRESENT: normal bowel sounds, soft. ABSENT: distended, guarding, mass, organolmegaly, rebound, tenderness Rectal exam: PRESENT: deferred Extremities exam: ABSENT: pedal edema Musculoskeletal exam: PRESENT: ambulatory Neurological exam: PRESENT: alert, awake, oriented to person, oriented to place, oriented to time, oriented to situation, CN II-XII grossly intact. ABSENT: motor sensory deficit Psychiatric exam: PRESENT: appropriate affect, normal mood. ABSENT: homicidal ideation, suicidal ideation Skin exam: PRESENT: dry, intact, warm. ABSENT: cyanosis, rash Results Laboratory Results: 07/28/18 05:50 07/28/18 05:50 07/28/18 07/28/18 05:50 05:50 WBC 3.7 L RBC 4.16 L Hgb 12.4 L Hct 37.6 L MCV 91 MCH 29.8 MCHC 32.9 RDW 13.1 Plt Count 160 Sodium 141.4 Potassium 4.3 Chloride 110 H Carbon Dioxide 25 Anion Gap 6 BUN 8 Creatinine 0.81 Est GFR ( Amer) > 60 Est GFR (Non-Af Amer) > 60 Glucose 84 Calcium 8.4 07/26/18 07/26/18 07/27/18 16:10 16:10 00:20 Creatine Kinase 256 H 194 H CK-MB (CK-2) 1.24 Troponin I < 0.012 NT-Pro-B Natriuret Pep 29 07/27/18 07/27/18 07/27/18 00:20 08:20 08:20 Creatine Kinase 191 H CK-MB (CK-2) 0.75 0.74 Troponin I < 0.012 < 0.012 NT-Pro-B Natriuret Pep Impressions: Chest X-Ray 07/26/18 00:00 IMPRESSION: Clear lungs. Chest/Abdomen CTA 07/26/18 00:00 IMPRESSION:No evidence of pulmonary embolus Abdomen/Pelvis CT 07/27/18 00:00 IMPRESSION: There is a approximately 7 cm collection of presumed fluid with increased density in the mid pelvis -mesentery, 45 Hounsfield units, uncertain etiology. I would recommend additional evaluation with contrast to further characterize. Assessment & Plan - Diagnosis (1) Gastroesophageal reflux disease Qualifiers: Esophagitis presence: without esophagitis Qualified Code(s): K21.9 - Gastro-esophageal reflux disease without esophagitis Is this a current diagnosis for this admission?: Yes Plan: Continues to Protonix (2) Abdominal pain Qualifiers: Abdominal location: epigastric Qualified Code(s): R10.13 - Epigastric pain Is this a current diagnosis for this admission?: Yes Plan: We will continue stop Protonix get the CT scan of the abdomen and pelvis (3) Chest pain Qualifiers: Chest pain type: unspecified Qualified Code(s): R07.9 - Chest pain, unspec ified Is this a current diagnosis for this admission?: Yes Plan: All cardiac enzyme and EKG is normal - Time Time Spent with patient: 15-24 minutes Medications reviewed and adjusted accordingly: Yes Anticipated discharge: Home - Plan Summary Plan Summary: Follow-up with the surgery for endoscopy and colonoscopy We will repeat the EKG and a cardiac enzyme in the morning
[2018-07-28] MEDS ORDERED: BISACODYL 5 MG TABEC PO ONE ×2 (10:30→17:00)
[2018-07-28 11:04] LABS: CREATINE KINASE MB 0.42 ng/mL (<4.55)
[2018-07-28 11:07] LABS: TROPONIN I < 0.012 ng/mL
--- NOTE | 2018-07-28 12:23 | PDOC PROGRESS REPORT ---
Subjective Progress Note for:: 07/28/18 Subjective:: This is a 57-year-old male with epigastric abdominal pain that improves with eating. The patient denies symptoms today. He ate breakfast without difficulty. He has a history of peptic ulcer disease and has previously been placed on a PPI. At this time, he does not take any medications at home. Today, the patient denies chest pain, shortness of breath, fevers, chills, dizziness, orthostasis, nausea, vomiting, diarrhea, headache, blurry vision. Reason For Visit: CHEST PAIN,ABNORMAL EKG,LEG PAIN,TOBACCO ABUSE Physical Exam Vital Signs: Temp Pulse Resp BP Pulse Ox 97.4 F 45 L 18 143/86 H 100 07/28/18 11:16 07/28/18 11:16 07/28/18 11:16 07/28/18 11:16 07/28/18 11:16 Intake & Output 07/27/18 07/28/18 07/29/18 06:59 06:59 06:59 Intake Total 3805 Output Total 450 1400 Balance -450 2405 Weight 55.2 kg 56.9 kg General appearance: PRESENT: no acute distress, cooperative Head exam: PRESENT: atraumatic, normocephalic Eye exam: PRESENT: EOMI, PERRLA Mouth exam: PRESENT: moist, neck supple Neck exam: ABSENT: meningismus, tenderness, thyromegaly, tracheal deviation Respiratory exam: PRESENT: clear to auscultation mark, symmetrical, unlabored. ABSENT: chest wall tenderness, tachypnea, wheezes Cardiovascular exam: PRESENT: RRR Pulses: PRESENT: normal radial pulses Vascular exam: PRESENT: normal capillary refill GI/Abdominal exam: PRESENT: soft. ABSENT: diminished bowel sounds, distended, firm, guarding, rigid, tenderness Rectal exam: PRESENT: deferred Extremities exam: ABSENT: clubbing Musculoskeletal exam: ABSENT: deformity Neurological exam: PRESENT: alert, awake, oriented to person, oriented to place, oriented to time, oriented to situation Psychiatric exam: ABSENT: agitated, anxious, depressed Focused psych exam: ABSENT: delusional Skin exam: ABSENT: cyanosis, erythema, jaundice Results Laboratory Results: 07/28/18 05:50 07/28/18 05:50 07/28/18 07/28/18 05:50 05:50 WBC 3.7 L RBC 4.16 L Hgb 12.4 L Hct 37.6 L MCV 91 MCH 29.8 MCHC 32.9 RDW 13.1 Plt Count 160 Sodium 141.4 Potassium 4.3 Chloride 110 H Carbon Dioxide 25 Anion Gap 6 BUN 8 Creatinine 0.81 Est GFR ( Amer) > 60 Est GFR (Non-Af Amer) > 60 Glucose 84 Calcium 8.4 07/26/18 07/26/18 07/27/18 16:10 16:10 00:20 Creatine Kinase 256 H 194 H CK-MB (CK-2) 1.24 Troponin I < 0.012 NT-Pro-B Natriuret Pep 29 07/27/18 07/27/18 07/27/18 00:20 08:20 08:20 Creatine Kinase 191 H CK-MB (CK-2) 0.75 0.74 Troponin I < 0.012 < 0.012 NT-Pro-B Natriuret Pep 07/28/18 07/28/18 10:27 10:27 Creatine Kinase 78 CK-MB (CK-2) 0.42 Troponin I < 0.012 NT-Pro-B Natriuret Pep Impressions: Chest X-Ray 07/26/18 00:00 IMPRESSION: Clear lungs. Chest/Abdomen CTA 07/26/18 00:00 IMPRESSION:No evidence of pulmonary embolus Abdomen/Pelvis CT 07/27/18 00:00 IMPRESSION: There is a approximately 7 cm collection of presumed fluid with increased density in the mid pelvis -mesentery, 45 Hounsfield units, uncertain etiology. I would recommend additional evaluation with contrast to further characterize. Assessment & Plan - Diagnosis (1) Abdominal pain Qualifiers: Abdominal location: epigastric Qualified Code(s): R10.13 - Epigastric pain Is this a current diagnosis for this admission?: Yes - Plan Summary Plan Summary: This is a 57-year-old male with abdominal pain of unknown origin. Patient had a complete cardiac work-up, which was negative. Surgery has been asked to see the patient for endoscopy. Plan for EGD and colonoscopy tomorrow after bowel prep today. The patient is in agreement with the treatment plan. Will follow.
[2018-07-29] MEDS: NORMAL SALINE 1000 ML 1,000 ML IV PRN ×3 (00:48→17:04)
[2018-07-29] MEDS: PANTOPRAZOLE SODIUM 40 MG TABLET.DR PO SCH ×2 (06:22→17:26)
[2018-07-29 06:45] LABS: HEMATOCRIT 37.1 % (37.9-51.0); HEMOGLOBIN 12.2 g/dL (13.5-17.0); MEAN CORPUSCULAR HEMOGLOBIN 29.5 pg (27.0-33.4); MEAN CORPUSCULAR HGB CONC 32.8 g/dL (32.0-36.0); MEAN CORPUSCULAR VOLUME 90 fl (80-97); PLATELET COUNT 162 10^3/uL (150-450); RED BLOOD COUNT 4.12 10^6/uL (4.35-5.55); WHITE BLOOD COUNT 3.9 10^3/uL (4.0-10.5)
--- NOTE | 2018-07-29 06:59 | EKG REPORT ---
SEVERITY:- ABNORMAL ECG - SINUS BRADYCARDIA BORDERLINE ST ELEVATION, ANTERIOR LEADS : Confirmed by: Radha Armstrong 29-Jul-2018 06:58:38
[2018-07-29 07:27] LABS: ANION GAP 7 (5-19); BLOOD UREA NITROGEN 6 mg/dL (7-20); CALCIUM 8.5 mg/dL (8.4-10.2); CARBON DIOXIDE 24 mmol/L (22-30); CHLORIDE 112 mmol/L (98-107); GLUCOSE 79 mg/dL (75-110); POTASSIUM 4.1 mmol/L (3.6-5.0); SODIUM 143.1 mmol/L (137-145)
--- NOTE | 2018-07-29 09:13 | XCELERA REPORT ---
[address] [address] Lower Extremity Arterial Evaluation Name: TIM LEYVA Age: 57 yrs Gender: Male : 1960 Patient Status: Inpatient Patient Location: [address] [place] [address] Study Date: 07/26/2018 06:14 PM Procedure: A color flow and duplex scan of the lower extremity arteries was performed bilaterally with velocity and waveform anaylsis. Reason For Study: chest pain, abnormal Ekg, leg pain, Ordering Physician: MARTHA DASH Performed By: Mary Mc Measurements and Calculations Right Left PRINCIPAL INVESTIGATOR PSV 154.5 149.3 cm/sec Prox PFA PSV 134.8 84.0 cm/sec Prox SFA PSV 140.6 150.9 cm/sec Mid SFA PSV 139.7 130.4 cm/sec Dist SFA PSV -77.2 -106.9cm/sec Prox Pop A PSV 58.8 79.5 cm/sec Mid DAY PSV 101.5 85.0 cm/sec Mid TANK HOOP BENDER PSV 93.8 87.4 cm/sec Fidel Pedis PSV -53.0 -50.0 cm/sec Right Side Arterial Evaluation Normal velocity and triphasic waveforms noted from the Common Femoral artery to the Posterior Tibial artery. . Biphasic with normal velocity in the Anterior tibial and Dorsalis Pedis arteries. Ankle Brachial index not obtained. Left Side Arterial Evaluation Normal velocity and triphasic waveforms noted from the Common Femoral artery to the Posterior Tibial artery. . Biphasic with normal velocity in the Anterior tibial and Dorsalis Pedis arteries. Ankle Brachial index not obtained. Interpretation Summary Mild hemodynamically significant lesions in the bilateral lower extremities, on duplex imaging, at rest. Bilaterally symmetrical, mild changes in the Anterior Tibial arteries. Would not expect significant clinical manifestation, clinical correlation advised. : MARTHA DASH > Demetrio Landon
[2018-07-29] MEDS: ASPIRIN 81 MG TABLET, ENT COATED PO SCH (10:30)
--- NOTE | 2018-07-29 11:17 | PDOC PROGRESS REPORT ---
Subjective Progress Note for:: 07/29/18 Subjective:: Patient reports less abdominal pain. He completed his bowel prep and is stools are clear Reason For Visit: CHEST PAIN,ABNORMAL EKG,LEG PAIN,TOBACCO ABUSE Physical Exam Vital Signs: Temp Pulse Resp BP Pulse Ox 97.7 F 55 L 16 147/92 H 100 07/29/18 07:32 07/29/18 07:32 07/29/18 07:32 07/29/18 07:32 07/29/18 07:32 Intake & Output 07/28/18 07/29/18 07/30/18 06:59 06:59 06:59 Intake Total 3805 3684 Output Total 1400 Balance 2405 3684 Weight 56.9 kg 56.2 kg General appearance: PRESENT: no acute distress GI/Abdominal exam: PRESENT: other - Soft, nontender no peritoneal signs no rigidity no guarding. Results Laboratory Results: 07/29/18 06:01 07/29/18 06:01 07/29/18 07/29/18 06:01 06:01 WBC 3.9 L RBC 4.12 L Hgb 12.2 L Hct 37.1 L MCV 90 MCH 29.5 MCHC 32.8 RDW 13.0 Plt Count 162 Sodium 143.1 Potassium 4.1 Chloride 112 H Carbon Dioxide 24 Anion Gap 7 BUN 6 L Creatinine 0.80 Est GFR ( Amer) > 60 Est GFR (Non-Af Amer) > 60 Glucose 79 Calcium 8.5 07/26/18 07/26/18 07/27/18 16:10 16:10 00:20 Creatine Kinase 256 H 194 H CK-MB (CK-2) 1.24 Troponin I < 0.012 NT-Pro-B Natriuret Pep 29 07/27/18 07/27/18 07/27/18 00:20 08:20 08:20 Creatine Kinase 191 H CK-MB (CK-2) 0.75 0.74 Troponin I < 0.012 < 0.012 NT-Pro-B Natriuret Pep 07/28/18 07/28/18 10:27 10:27 Creatine Kinase 78 CK-MB (CK-2) 0.42 Troponin I < 0.012 NT-Pro-B Natriuret Pep Impressions: Chest X-Ray 07/26/18 00:00 IMPRESSION: Clear lungs. Chest/Abdomen CTA 07/26/18 00:00 IMPRESSION:No evidence of pulmonary embolus Abdomen/Pelvis CT 07/27/18 00:00 IMPRESSION: There is a approximately 7 cm collection of presumed fluid with increased density in the mid pelvis -mesentery, 45 Hounsfield units, uncertain etiology. I would recommend additional evaluation with contrast to further characterize. Assessment & Plan - Diagnosis (1) Abdominal pain Qualifiers: Abdominal location: epigastric Qualified Code(s): R10.13 - Epigastric pain Is this a current diagnosis for this admission?: Yes Plan: Impression: Abdominal pain of unclear etiology; subsiding; laboratory profile grossly unremarkable. Unremarkable CT scan except for minimal fluid in the pelvis; remote history of colonoscopy with polypectomy; long history of alcohol and smoking abuse Recommendations 1. We will proceed with upper and lower endoscopy today under conscious sedation, fifth floor. The mechanics of the operation, and risk benefits and alternatives to the procedure were explained to the patient. I believe he understands and agrees to proceed.
[2018-07-29] MEDS ORDERED: DIPHENHYDRAMINE HCL 50 MG/ML VIAL ONE (12:53)
[2018-07-29] MEDS ORDERED: ONDANSETRON HCL INJ/PF 4 MG/2 ML SDV ONE (12:53)
[2018-07-29] MEDS ORDERED: FLUMAZENIL INJ 0.5 MG/5 ML VIAL ONE ×2 (12:54→15:22)
[2018-07-29] MEDS ORDERED: GLUCAGON,HUMAN RECOMB 1 MG INJ ONE (12:54)
[2018-07-29] MEDS ORDERED: FENTANYL CITRATE INJ/PF 100 MCG/2 ML AMPUL ONE (12:54)
[2018-07-29] MEDS ORDERED: EPINEPHRINE INJ 1 MG/10 ML DISP.SYRIN ONE (12:54)
[2018-07-29] MEDS ORDERED: NALOXONE HCL INJ/PF 0.4 MG/1 ML SDV ONE ×2 (12:54→15:21)
[2018-07-29] MEDS: MIDAZOLAM 2 MG/2 ML INJ ONE ×5 (13:24→14:04)
--- NOTE | 2018-07-29 14:44 | Operative Report ---
Operative Report DATE OF SURGERY: 07/29/18 PREOPERATIVE DIAGNOSIS: 1. Abdominal pain. 2. History of peptic ulcer diseas e. 3. History of colon polyps POSTOPERATIVE DIAGNOSIS: 1. Mild gastritis. 2. Mild duodenitis. 3. Tortuous sigmoid colon OPERATION: 1. Esophagogastroduodenoscopy. 2. Mucosal biopsy of gastric antrum. 3. Total colonoscopy to cecum. 4. Mucosal biopsy of sigmoid colon SURGEON: LEROY MCWILLIAMS ANESTHESIA: Moderate Sedation TISSUE REMOVED OR ALTERED: Mucosal biopsies as described above COMPLICATIONS: None ESTIMATED BLOOD LOSS: Scant INTRAOPERATIVE FINDINGS: See below PROCEDURE: The patient was taken from the floor to the endoscopy suite where monitoring de vices were attached, patient placed in semirecumbent position oral mouthpiece inserted appropriate level of conscious sedation induced. Surgical plan surgical timeout conducted The flexible upper endoscope was advanced to the patient's oropharynx, down the esophagus through the stomach into the duodenum. This was well-tolerated by the patient. The first and second portions of the duodenum were normal. The pylorus was somewhat friable. There was no stevie tumor, ulcer, stricture, or bleeding. We advanced retrograde and anterograde through the pylorus several times to ensure there was no anatomic pathology. No distinct mass could be appreciated The scope was backed into the lumen of the stomach. A random biopsy of the gastric antrum was chosen. There is mild streaking of the greater curvature the stomach with photographs taken. The scope was retroflexed in the stomach, there is no evidence of significant hiatal area. There is no evidence of tumor stricture bleeding or polyp. Scope was withdrawn through the patient's GE junction. No significant inflammation at this level. The Z line was at approximately 38 cm in the incisor. The remainder the esophagus showed no evidence of bleeding, polyp oropharynx. The scope was withdrawn the patient oropharynx. Tolerated procedure well Instrumentation set up for colonoscopy. Obtaining informed consent the patient was taken from the preoperative holding area to the main endoscopy suite where monitoring devices were attached to the patient. Plan and surgical timeout were conducted The patient was placed in the left lateral decubitus position with knees to chest. A perianal examination was performed. There was no visible or palpable anorectal pathology. Sphincter tone was felt to be normal. The flexible adult colonoscope was advanced through the anal rectal canal, all the way to the cecum. Of note we did have some challenge advancing the scope through the sigmoid colon, requiring the patient rotation, as well as extracorporeal manipulation of the scope. Visualization of the cecum was achieved and the ileocecal valve, the appendiceal orifice and transillumination of the anterior abdominal wall. This was an excellent study on the well-prepped bowel. Unfortunately the patient was agitated during the operation despite receiving 7 mg of Versed and a micrograms of fentanyl. The colonoscope was withdrawn slowly and methodically checked and the mucosa carefully. There was no evidence of tumor, stricture, bleeding or polyp. There was no evidence of diverticuloses. I did take a random biopsy of the sigmoid colon approximately 30 cm from the anal verge. There was no significant bleeding. The scope was slowly withdrawn through the anal rectal canal. Complete visualization of the rectum was achieved with photodocumentation. The scope was withdrawn to the patient's anus. The patient tolerated the procedure well and was taken to the recovery area in stable condition. Follow-up colonoscopy recommended at an interval based on the results of the biopsy. Likely 3 to 5 years.
--- NOTE | 2018-07-29 22:09 | RADIOLOGY REPORT (SQ) ---
EXAM DESCRIPTION: CT ABDOMEN PELVIS WITH IV CONTRAST COMPLETED DATE/TME: 07/29/2018 00:00 CLINICAL HISTORY: 57 years, Male, ? lesion in the abdomen /pelvis on previous CT abdomen/pelvis dated 07/27/2018. COMPARISON: Prior study from 07/27/2018 TECHNIQUE: Contrast enhanced CT of the abdomen/pelvis was performed. Coronal and sagittal reformations were created. Images stored on PACS. All CT scanners at this facility use dose modulation, iterative reconstruction, and/or weight based dosing when appropriate to reduce radiation dose to as low as reasonably achievable (ALARA). [facility]: Dose Right [facility]: CareDose [facility]: Dose Right [facility]: Teradose 4D [facility]: Community Cash LIMITATIONS: None. FINDINGS: Limited evaluation of the lower chest reveals bibasilar atelectasis. The liver, spleen, pancreas, gallbladder, and both adrenal glands appear normal. A 4 mm calculus is noted about the interpolar region of the right kidney. Both kidneys otherwise enhance symmetrically. There is no hydronephrosis or hydroureter. The urinary bladder is partially collapsed, thus its evaluation is limited. Small and large bowel appear normal in caliber without areas of focal wall thickening. There is no evidence of bowel obstruction. The appendix is normal. Vascular structures opacify with contrast normally. Only mild calcifications are noted about the abdominal aorta. No suspicious lymphadenopathy or drainable fluid collections are appreciated. No obvious soft tissue mass is identified within the pelvis. The abnormality seen on the previous CT dated 07/27/2018 corresponds to multiple small bowel loops. Bone windows show no destructive osseous lesions. Focal sclerotic lesion is noted about the posterior aspect of the right acetabulum, similar to the previous exam dated 04/19/2017, and likely indicating a bone island. IMPRESSION: No acute abnormality within the abdomen or pelvis. Specifically, there is no soft tissue mass identified within the low pelvis. Nonobstructive right nephrolithiasis. TECHNICAL DOCUMENTATION: Quality ID # [id number]: Final reports with documentation of one or more dose reduction techniques (e.g., Automated exposure control, adjustment of the mA and/or kV according to patient size, use of iterative reconstruction technique) copyright 2011 [employer]- All Rights Reserved
[2018-07-30 03:21] LABS: HEMATOCRIT 35.7 % (37.9-51.0); HEMOGLOBIN 11.8 g/dL (13.5-17.0); MEAN CORPUSCULAR HEMOGLOBIN 29.7 pg (27.0-33.4); MEAN CORPUSCULAR HGB CONC 33.1 g/dL (32.0-36.0); MEAN CORPUSCULAR VOLUME 90 fl (80-97); PLATELET COUNT 177 10^3/uL (150-450); RED BLOOD COUNT 3.98 10^6/uL (4.35-5.55); RED CELL DISTRIBUTION WIDTH 12.9 % (11.5-14.0); WHITE BLOOD COUNT 4.8 10^3/uL (4.0-10.5)
[2018-07-30 03:42] LABS: ANION GAP 5 (5-19); BLOOD UREA NITROGEN 12 mg/dL (7-20); CALCIUM 8.5 mg/dL (8.4-10.2); CARBON DIOXIDE 28 mmol/L (22-30); CHLORIDE 106 mmol/L (98-107); GLUCOSE 96 mg/dL (75-110); POTASSIUM 4.2 mmol/L (3.6-5.0); SODIUM 139.4 mmol/L (137-145)
[2018-07-30] MEDS: NORMAL SALINE 1000 ML 1,000 ML IV PRN (04:38)
[2018-07-30] MEDS: PANTOPRAZOLE SODIUM 40 MG TABLET.DR PO SCH (05:56)
[2018-07-30] MEDS: ASPIRIN 81 MG TABLET, ENT COATED PO SCH (15:52)
[2018-07-30 17:52] VITALS: BP 141/90
--- NOTE | 2018-07-30 20:33 | PDOC DISCHARGE SUMMARY ---
General - Admit/Disc Date/PCP Admission Date/Primary Care Provider: 07/26/18 14:40 MARTHA DASH MD Discharge Date: 07/30/18 - Discharge Diagnosis (1) Chest pain Is this a current diagnosis for this admission?: Yes (2) Abdominal pain Is this a current diagnosis for this admission?: Yes (3) Gastroesophageal reflux disease Is this a current diagnosis for this admission?: Yes (4) Peripheral vascular disease Is this a current diagnosis for this admission?: Yes - Additional Information Resuscitation Status: Full Code Discharge Diet: As Tolerated Discharge Activity: Activity As Tolerated Prescriptions: Esomeprazole Mag Trihydrate [Nexium] 40 mg PO DAILY #90 capsule. Home Medications: Losartan/Hydrochlorothiazide [Losartan-Hctz 50-12.5 mg Tab] 1 tab PO DAILY 07/26/18 Sildenafil Citrate [Viagra] 100 mg PO PRN PRN 07/26/18 Esomeprazole Mag Trihydrate [Nexium] 40 mg PO DAILY #90 capsule. 07/30/18 History of Present Illness History of Present Illness: TIM LEYVA is a 57 year old male,he came to the office today for evaluation of chest pain,the chest pain is non-specific ,the 12 Lead EKG demonstrated sinus Rhythm,ST elevation,concave elevation of ST-segment in precordial leads this suggest pericarditis rather than ischemia .CTA chest done was negative for pulmonary embolism .He also complains of lower extremity pain /leg pain ,can not completely rule out peripheral vascular disease Hospital Course Hospital Course: Patient was admitted for the management of chest pain, CT angiogram of the chest was done, it was negative for pulmonary embolism CT scan of abdomen and pelvis without contrast was obtained over the weekend, it demonstrated nonspecific finding in the lower abdomen subsequent CT scan of abdomen and pelvis with IV contrast was obtained, it demonstrated, the liver, spleen pancreas gallbladder appeared normal there was a small 4 mm calculus in the interpolar region of the right kidney, both kidneys analysis symmetrically there is no hydronephrosis or hydroureter, the urinary bladder is partially collapsed. He was also seen by the surgeon he underwent EGD and colonoscopy which was negative,Arterial Doppler was done, it demonstrated peripheral vascular disease Physical Exam Vital Signs: Temp Pulse Resp BP Pulse Ox 98.1 F 52 L 16 141/90 H 100 07/30/18 17:47 07/30/18 17:47 07/30/18 17:47 07/30/18 17:47 07/30/18 17:47 Intake & Output 07/29/18 07/30/18 07/31/18 06:59 06:59 06:59 Intake Total 3684 3628 1213 Balance 3685 3628 1213 Weight 56.2 kg 58.7 kg General appearance: PRESENT: no acute distress Head exam: PRESENT: atraumatic, normocephalic Eye exam: PRESENT: PERRLA Neck exam: PRESENT: full ROM Respiratory exam: PRESENT: clear to auscultation mark Cardiovascular exam: PRESENT: RRR, +S1, +S2 Vascular exam: PRESENT: normal capillary refill GI/Abdominal exam: PRESENT: normal bowel sounds, soft Rectal exam: PRESENT: deferred Neurological exam: PRESENT: alert, CN II-XII grossly intact Psychiatric exam: PRESENT: appropriate affect, normal mood Skin exam: PRESENT: dry, intact, warm Results Laboratory Results: 07/30/18 03:06 07/30/18 03:06 07/30/18 07/30/18 03:06 03:06 WBC 4.8 RBC 3.98 L Hgb 11.8 L Hct 35.7 L MCV 90 MCH 29.7 MCHC 33.1 RDW 12.9 Plt Count 177 Sodium 139.4 Potassium 4.2 Chloride 106 Carbon Dioxide 28 Anion Gap 5 BUN 12 Creatinine 0.88 Est GFR ( Amer) > 60 Est GFR (Non-Af Amer) > 60 Glucose 96 Calcium 8.5 07/26/18 07/26/18 07/27/18 16:10 16:10 00:20 Creatine Kinase 256 H 194 H CK-MB (CK-2) 1.24 Troponin I < 0.012 NT-Pro-B Natriuret Pep 29 07/27/18 07/27/18 07/27/18 00:20 08:20 08:20 Creatine Kinase 191 H CK-MB (CK-2) 0.75 0.74 Troponin I < 0.012 < 0.012 NT-Pro-B Natriuret Pep 07/28/18 07/28/18 10:27 10:27 Creatine Kinase 78 CK-MB (CK-2) 0.42 Troponin I < 0.012 NT-Pro-B Natriuret Pep Impressions: Chest X-Ray 07/26/18 00:00 IMPRESSION: Clear lungs. Chest/Abdomen CTA 07/26/18 00:00 IMPRESSION:No evidence of pulmonary embolus Abdomen/Pelvis CT 07/29/18 00:00 IMPRESSION: No acute abnormality within the abdomen or pelvis. Specifically, there is no soft tissue mass identified within the low pelvis. Nonobstructive right nephrolithiasis. TECHNICAL DOCUMENTATION: Quality ID # [id number]: Final reports with documentation of one or more dose reduction techniques (e.g., Automated exposure control, adjustment of the mA and/or kV according to patient size, use of iterative reconstruction technique) copyright 2011 [employer]- All Rights Reserved Qualifiers - * PATIENT BEING DISCHARGED WITH ANY OF THE FOLLOWING DIAGNOSIS: No Acute Heart Failure Is this a Heart Failure Patient?: No
== END 2018-07-30 18:34 | disposition home or self-care (01) ==
LOC: ER 14:25 → 3W 14:40 → INTOOBSV 14:40
PROVIDERS: ADMIT Internal Medicine; ATTEND Internal Medicine
PROC: 0DBN8ZX Excision of Sigmoid Colon, Via Natural or Artificial Opening Endoscopic, Diagnostic (ICD-10-PCS; principal; 2018-07-29 13:30)
PROC: 0DB68ZX Excision of Stomach, Via Natural or Artificial Opening Endoscopic, Diagnostic (ICD-10-PCS; 2018-07-29 13:30)
DX: R07.9 Chest pain, unspecified (principal); K29.50 Unspecified chronic gastritis without bleeding; K29.80 Duodenitis without bleeding; K21.9 Gastro-esophageal reflux disease without esophagitis; I73.9 Peripheral vascular disease, unspecified; K80.50 Calculus of bile duct without cholangitis or cholecystitis without obstruction; I10 Essential (primary) hypertension; Q43.8 Other specified congenital malformations of intestine; F17.210 Nicotine dependence, cigarettes, uncomplicated; R94.31 Abnormal electrocardiogram [ECG] [EKG]; R45.1 Restlessness and agitation; Z79.899 Other long term (current) drug therapy; Z86.010 Personal history of colon polyps; Z87.11 Personal history of peptic ulcer disease
CPT/HCPCS: 93005 ×4; 43239; 45380; 36415 ×5; 82553 ×3; 82550 ×3; 85025; 85027 ×3; 80076; 80048 ×4; 81001; 84484 ×3; 85379; 83880; 88342 ×2; 88305 ×2; 93925 ×2; 71045; 71275; 74176; 74177; 93010 ×3; G0378 ×5; G0379; J2250; J3010; J3490 ×6; J7030 ×5; J0171; J1200; J1610; J2310; J2405

== ENCOUNTER 2018-12-07 00:30 | Emergency (ER) | payer OTHER ==
[2018-12-07 01:47] LABS: APPEARANCE,URINE CLEAR; BILIRUBIN,URINE NEGATIVE (NEGATIVE); COLOR,URINE YELLOW; GLUCOSE, URINE NEGATIVE (NEGATIVE); KETONES,URINE TRACE mg/dL (NEGATIVE); LEUKOCYTE ESTERASE,URINE NEGATIVE (NEGATIVE); NITRITE,URINE NEGATIVE (NEGATIVE); PROTEIN,URINE NEGATIVE (NEGATIVE); URINE SPECIFIC GRAVITY 1.017; UROBILINOGEN,URINE NEGATIVE mg/dL (<2.0)
[2018-12-07] MEDS ORDERED: NORMAL SALINE 1000 ML 1,000 ML IV ONE (02:05)
[2018-12-07] MEDS ORDERED: MORPHINE SULFATE 10 MG/ML INJ IV ONE (02:05)
[2018-12-07] MEDS ORDERED: ONDANSETRON HCL INJ/PF 4 MG/2 ML SDV IV ONE (02:09)
--- NOTE | 2018-12-07 02:12 | ER Document Report ---
ED General - General Chief Complaint: Epigastric Pain Stated Complaint: STOMACH PAIN Time Seen by Provider: 12/07/18 01:36 Primary Care Provider: [facility] [Provider Group] - Follow up in 1 week MARTHA DASH MD [Primary Care Provider] - Follow up in 1 week Notes: Patient is a 58-year-old male who presents to the emergency department with a chief complaint of abdominal pain. He states that his pain started 2 days ago. He has had some on-and-off nausea and vomiting. States his pain is primarily in his mid abdomen and radiates on both sides. He was seen by his primary care provider and states that he was given pantoprazole and sucralfate to help with his symptoms. He states that it did not help. He also states that he took some ibuprofen and states that his symptoms were worse. He admits to having some urinary retention. Patient also states that he had black/brown stool the other day. He has a past medical history of hypertension and was placed back on his losartan today. TRAVEL OUTSIDE OF THE [place] IN LAST 30 DAYS: No - Related Data Allergies/Adverse Reactions: No Known Allergies Allergy (Verified 03/17/13 08:06) Past Medical History - Social History Smoking Status: Current Every Day Smoker Frequency of alcohol use: 3 drinks per day Drug Abuse: None Family History: Reviewed & Not Pertinent Patient has suicidal ideation: No Patient has homicidal ideation: No - Past Medical History Cardiac Medical History: Reports: Hx Hypertension Pulmonary Medical History: Reports: Hx COPD, Hx Pneumonia Neurological Medical History: Denies: Hx Cerebrovascular Accident, Hx Seizures Renal/ Medical History: Denies: Hx Peritoneal Dialysis Musculoskeletal Medical History: - Immunizations Hx Diphtheria, Pertussis, Tetanus Vaccination: No Review of Systems - Review of Systems Notes: REVIEW OF SYSTEMS: CONSTITUTIONAL : Denies recent illness. Denies recent unintentional weight loss. Denies fever, chills, or sweats. EENT: Denies eye, ear, throat, or mouth pain, discharge, or symptoms. Denies nasal or sinus congestion. CARDIOVASCULAR: Denies chest pain. RESPIRATORY: Denies shortness of breath, cough, congestion, difficulty breathing, or wheezing. GASTROINTESTINAL: See HPI. GENITOURINARY: See HPI. MUSCULOSKELETAL: Denies neck and back pain. Denies joint pain or swelling. SKIN: Denies rash, itchiness, or lesions HEMATOLOGIC : Denies easy bruising or bleeding. LYMPHATIC: Denies swollen, painful, enlarged glands. NEUROLOGICAL: Denies no numbness or tingling denies weakness. Denies headache. Denies altered mental status. Denies alteration in speech. PSYCHIATRIC: Denies stress, anxiety, alteration in sleep patterns, or depression. All other systems reviewed and negative. Physical Exam - Vital signs Vitals: Temp Pulse Resp BP Pulse Ox 97.8 F 55 L 16 152/89 H 99 12/07/18 00:38 12/07/18 00:38 12/07/18 00:38 12/07/18 00:38 12/07/18 00:38 - Notes Notes: PHYSICAL EXAMINATION: GENERAL: Appears well, healthy, well-nourished, no acute distress. HEAD: Normocephalic, atraumatic. EYES: PERRL, conjunctiva normal, all extraocular movements intact, sclera nonicteric ENT: Dry mucous membranes. NECK: Supple, no noticeable swelling, redness, rash. Normal range of motion. LUNGS: Equal breath sounds bilaterally and clear to auscultation. No wheezes rales or rhonchi. CARDIOVASCULAR: S1-S2, regular rate, regular rhythm. Radial pulses 2+, normal. ABDOMEN: Normoactive bowel sounds. Soft, nontender, no guarding, no rebound tenderness, and no masses palpated. EXTREMITIES: Normal strength and range of motion, no pitting or edema. No cyanosis. NEUROLOGICAL: Moves all extremities upon command. Strength 5/5 in all extremities. PSYCH: Normal mood, normal affect. SKIN: Warm, dry. No rash, lesions, ulcerations noted. Normal skin turgor. Dry Course - Re-evaluation Re-evalutation: 12/07/18 03:26 I do not think she is got it but she is gray tender to see if he of the abdomen pelvis shows a 4 mm calcification in the right posterior bladder that represents a recently passed stone. His appendix is normal. Hematology is unremarkable. Chemistries are normal and his lipase is unremarkable. He did have blood in his urine, consistent with his renal calculi. Patient states that he does feel remarkably better. The patient will be given Flomax. I have also instructed the patient to continue to take his Carafate and Protonix. He will follow-up with his primary care provider in regards to this visit. Follow-up precautions were given. Verbal discharge instructions were given to the patient. They verbalized understanding. They are stable for discharge. - Vital Signs Vital signs: Temp Pulse Resp BP Pulse Ox 98.2 F 55 L 18 153/86 H 100 12/07/18 03:31 12/07/18 00:38 12/07/18 03:31 12/07/18 03:31 12/07/18 03:31 - Laboratory Result Diagrams: 12/07/18 02:30 12/07/18 02:30 Laboratory results interpreted by me: 12/07/18 12/07/18 01:20 02:30 Sodium 136.7 L Urine Ketones TRACE H Urine Blood MODERATE H Discharge - Discharge Clinical Impression: Renal calculi Condition: Stable Disposition: HOME, SELF-CARE Additional Instructions: Your symptoms should improve over the course of the next one week. If you cont inue to have pain for greater than one week or your pain is not controlled with the pain medications that you have been sent home with you need to return to the emergency department. Please also return if you develop fever, persistent vomiting, or any other symptoms that are concerning to you. You can take the [place] that was given to you, but only take it as needed. You can take 1 tablet every 4-6 hours. I recommend taking Tylenol 650 mg every 6 hours for your pain. Continue to take your Carafate and Protonix given to you by your primary care provider. You are also been sent home with a medication called Flomax to help pass the stone. Please follow-up with urology in the next 2-3 days. Prescriptions: Tamsulosin HCl [Flomax 0.4 mg Cap.sr] 0.4 mg PO DAILY #6 cap.sr.24h Referrals: MARTHA DASH MD [Primary Care Provider] - Follow up in 1 week [facility] [Provider [facility]] - Follow up in 1 week
[2018-12-07 02:41] LABS: ABSOLUTE EOSINOPHILS # (AUTO) 0.3 10^3/uL (0.0-0.6); ABSOLUTE LYMPHOCYTES (AUTO) 1.5 10^3/uL (0.5-4.7); ABSOLUTE MONOCYTES (AUTO) 0.4 10^3/uL (0.1-1.4); ABSOLUTE NEUT (AUTO) 4.5 10^3/uL (1.7-8.2); BASOPHILS % (AUTO) 0.7 % (0-2); EOSINOPHILS % (AUTO) 4.2 % (0-6); HEMATOCRIT 40.6 % (37.9-51.0); HEMOGLOBIN 13.5 g/dL (13.5-17.0); LYMPHOCYTES % (AUTO) 21.8 % (13-45); MEAN CORPUSCULAR HGB CONC 33.3 g/dL (32.0-36.0); MEAN CORPUSCULAR VOLUME 90 fl (80-97); MONOCYTES % (AUTO) 6.4 % (3-13); PLATELET COUNT 200 10^3/uL (150-450); RED CELL DISTRIBUTION WIDTH 12.9 % (11.5-14.0); SEGMENTED NEUTROPHILS % (AUTO) 66.9 % (42-78); TOTAL CELLS COUNTED % (AUTO) 100 %; WHITE BLOOD COUNT 6.7 10^3/uL (4.0-10.5)
[2018-12-07 02:56] LABS: ALBUMIN 4.1 g/dL (3.5-5.0); ALKALINE PHOSPHATASE 65 U/L (38-126); ANION GAP 7 (5-19); ASPARTATE AMINO TRANSFERASE 20 U/L (17-59); BILIRUBIN,DIRECT 0.1 mg/dL (0.0-0.4); BILIRUBIN,TOTAL 1.1 mg/dL (0.2-1.3); BLOOD UREA NITROGEN 9 mg/dL (7-20); CALCIUM 8.8 mg/dL (8.4-10.2); CARBON DIOXIDE 27 mmol/L (22-30); CHLORIDE 103 mmol/L (98-107); GLUCOSE 90 mg/dL (75-110); POTASSIUM 4.1 mmol/L (3.6-5.0); TOTAL PROTEIN 6.7 g/dL (6.3-8.2)
--- NOTE | 2018-12-07 03:19 | RADIOLOGY REPORT (SQ) ---
CT abdomen and pelvis without contrast on 12/07/2018 at 2:37 AM CLINICAL INDICATION: Upper abdominal pain, urinary urgency TECHNIQUE: Multiple axial images are obtained throughout the abdomen and pelvis without the administration of contrast. This exam was performed according to our departmental dose-optimization program, which includes automated exposure control, adjustment of the mA and/or kV according to patient size and/or use of iterative reconstruction technique. Total DLP is 214.11 mGy*cm. COMPARISON: 07/29/2018 FINDINGS: Abdomen: The lung bases are clear. There are no renal or ureteral stones and no hydronephrosis. There is however a 4 mm calcification in the right posterior bladder that may represent a recently passed stone into the bladder. The unenhanced solid abdominal organs are unremarkable. There is no abdominal adenopathy. Mild vascular calcifications are noted. There is no free fluid or free air within the abdomen. The abdominal portion of the GI tract is unremarkable. Pelvis: There is no free fluid in the pelvis. There is no pelvic adenopathy. Pelvic portion of the GI tract including the appendix is unremarkable. Degenerative changes are noted in the spine. IMPRESSION: 1. 4 mm calcification in the posterior bladder may represent a recently passed stone into the bladder. 2. Otherwise essentially unremarkable unenhanced exam.
[2018-12-07] MEDS ORDERED: TAMSULOSIN HCL 0.4 MG CAP.SR.24H PO ONE (03:25)
[2018-12-07] MEDS ORDERED: HYDROCODONE/ACETAMINOPHEN 5-325 MG (6 TAB/ER DISP) PO PRN (03:27)
[2018-12-07 03:35] VITALS: BP 153/86
== END 2018-12-07 03:42 | disposition home or self-care (01) ==
LOC: ER 00:30
DX: N20.0 Calculus of kidney (principal); N32.89 Other specified disorders of bladder; R31.9 Hematuria, unspecified; R11.2 Nausea with vomiting, unspecified; R10.13 Epigastric pain; R39.9 Unspecified symptoms and signs involving the genitourinary system; I10 Essential (primary) hypertension; F17.200 Nicotine dependence, unspecified, uncomplicated; J44.9 Chronic obstructive pulmonary disease, unspecified
CPT/HCPCS: 99284; 96361; 96374; 96375; 36415; 83690; 85025; 80053; 81001; 74176; J2270; J2405; J7030